=== PATIENT | female | born 1990 | race Caucasian/White ===

== ENCOUNTER 2018-05-08 19:08 | Emergency (ER) | payer SELFPAY ==
[~2018-05-08] VITALS: Ht 167.6 cm; Wt 63.5 kg
--- NOTE | 2018-05-08 18:55 | Emergency Room Report ---
History of Present Illness General Source: EMS Present Illness HPI Patient is a 27-year-old female brought in by EMS after the syncopal episode. Patient was noted to have passed out after taking GHB. The patient was noted to have some injuries to her right upper extremity as well as to her right foot. The patient reportedly landed on a potted plant after passing out. Allergies: Coded Allergies: No Known Allergies (Unverified , 05/08/18) Patient History Past Medical History: see triage record Reviewed Nursing Documentation: PMH: Agreed; PSxH: Agreed Review of Systems All Other Systems: negative except mentioned in HPI Physical Exam Sp02 EP Interpretation: reviewed, normal General Appearance: normal inspection, well appearing, no apparent distress, alert, GCS 15 Head: atraumatic ENT: normal ENT inspection, hearing grossly normal, normal voice Neck: normal inspection, full range of motion, supple, no bony tend Respiratory: normal inspection, lungs clear, normal breath sounds, no respiratory distress, no retraction, no wheezing Cardiovascular #1: regular rate, rhythm, no edema Gastrointestinal: normal inspection, normal bowel sounds, non tender, soft, no guarding, no hernia Genitourinary: no CVA tenderness Musculoskeletal: normal inspection, back normal, normal range of motion Neurologic: normal inspection, alert, responsive, speech normal Psychiatric: normal inspection, judgement/insight normal, mood/affect normal Skin: normal inspection, normal color, no rash, laceration - superficial laceration to right forearm, superficial abrasions to toes. Medical Decision Making Diagnostic Impression: Primary Impression: Substance abuse Additional Impression: Laceration ER Course Patient is a 27-year-old female presented after increased altered mental status. EKG interpreted by me showed normal sinus rhythm with an incomplete right bundle-branch block. The Patient has a benign exam and does not appear to require any further imaging or laboratory testing at this time. Patient was observed in the emergency department was noted to have gradual improvement in her mental status. The patient's lacerations were superficial and do not require repair. Patient's tetanus shot was updated. The patient stated she felt better want to go home.The patient is advised to follow up with primary care doctor in 1-2 days. Patient is advised to return if any worsening condition or if any changes in status that are concerning. This report is dictated with [employer] weight guesser software which may occasionally lead to discrepancies related to use of this software. EKG Diagnostic Results Rate: normal Rhythm: NSR ST Segments: no acute changes Status: improved Disposition: HOME, SELF-CARE Condition: Stable Marcell Perry MD May 08, 2018 18:55
[2018-05-08] MEDS ORDERED: Tetanus/Diptheria/Pertussis Vaccine 0.5ml Syr IM ONE (19:15)
[2018-05-08 19:25] VITALS: BP 130/74
[2018-05-08 21:45] VITALS: BP 131/72
--- NOTE | 2018-05-09 19:01 | Cardiology Report ---
APPROVED REPORT EKG Measurement Heart [id number] [id number] Normal sinus rhythm with sinus arrhythmia Possible Left atrial enlargement Incomplete right bundle branch block Borderline ECG
== END 2018-05-08 21:45 | disposition home or self-care (01) ==
LOC: EDBD 19:08 → EMR 19:38
DX: T14.8XXA Other injury of unspecified body region, initial encounter (principal); R41.82 Altered mental status, unspecified; F19.10 Other psychoactive substance abuse, uncomplicated; R55 Syncope and collapse; Z23 Encounter for immunization; W18.31XA Fall on same level due to stepping on an object, initial encounter; Y93.9 Activity, unspecified; Y92.9 Unspecified place or not applicable; Y99.9 Unspecified external cause status
CPT/HCPCS: 90471; 90715; 93005; 96360; 99284